=== PATIENT | male | born 1970 | race American Indian/Alaskan Native ===

== ENCOUNTER 2019-11-16 01:21 | Emergency (ER) | payer SELFPAY ==
--- NOTE | 2019-11-16 01:59 | XRay Report ---
CHEST 1 VIEW INDICATION: Chest Pain. COMPARISON: None FINDINGS: Support devices: None. Heart: Within normal limits. Lungs/Pleura: No acute air space or interstitial disease. Additional findings: None. IMPRESSION: 1. No acute findings. Signer Name: Moe Navarro MD Signed: 11/16/2019 1:54 AM Workstation Name: [id number]
[2019-11-16 02:55] LABS: Hematocrit 42.2 % (35.5-45.6); Hemoglobin 14.4 gm/dl (11.8-15.2); Mean Corpuscular HGB Conc 34 % (32-34); Mean Corpuscular Volume 86 fl (84-94); Platelet Count 255 K/mm3 (140-440); Red Cell Distribution Width 14.8 % (13.2-15.2)
[2019-11-16 03:20] LABS: BUN/Creatinine Ratio 11; Blood Urea Nitrogen 16 mg/dL (9-20); Calcium 9.1 mg/dL (8.4-10.2); Hemolysis Index 14
[2019-11-16 03:33] LABS: Total Cells Counted 100
[2019-11-16 03:34] LABS: Platelet Estimate Consistent w Auto; RBC Morphology Normal
--- NOTE | 2019-11-16 08:47 | Emergency Department Report ---
ED Chest Pain HPI - General Chief Complaint: Chest Pain Stated Complaint: CHEST AND JAW PAIN Time Seen by Provider: 11/16/19 08:22 Source: patient Mode of arrival: Ambulatory Limitations: No Limitations - History of Present Illness Initial Comments: 49-year-old [place] male presents to the emergency department with the complaint of a 1 day history of intermittent pain that starts in the right side of his jaw and radiates down to the mid to right chest. At the time of my examination the patient is pain-free and denies taking any medication or treatm ent for his symptoms prior to arrival. He denies any past medical history but does not follow with a primary care physician regularly. He did pass a job physical about 1 year ago. He is a tobacco smoker but denies any illicit drug use. No family history of early cardiac disease or events. He denies any fever, diaphoresis, nausea, vomiting, lower extremity swelling, back pain or shortness of breath. No recent travel or sick contacts at home. Severity scale (0 -10): 0 - Related Data Previous Rx's Medication Instructions Recorded Last Taken Type Amlodipine Besylate [Norvasc] 5 mg PO QDAY #30 tablet 11/16/19 Unknown Rx Allergies Allergy/AdvReac Type Severity Reaction Status Date / Time No Known Allergies Allergy Unverified 11/16/19 01:29 Heart Score - HEART Score History: Slightly suspicious EKG: Non-specific Age: 45-65 Risk factors: 1-2 risk factors Troponin: < normal limit HEART Score: 3 - Critical Actions Critical Actions: 0-3 pts:0.9-1.7%risk of adverse cardiac event.Candidate for discharge ED Review of Systems ROS: Stated complaint: CHEST AND JAW PAIN Other details as noted in HPI Comment: All other systems reviewed and negative Constitutional: denies: chills, fever Eyes: denies: eye pain, vision change ENT: denies: ear pain, throat pain Respiratory: denies: cough, shortness of breath Cardiovascular: chest pain. denies: palpitations, edema Gastrointestinal: denies: abdominal pain, vomiting Genitourinary: denies: dysuria, frequency Musculoskeletal: denies: back pain, arthralgia Skin: denies: rash, lesions Neurological: denies: headache, weakness ED Past Medical Hx - Past Medical History Previous Medical History?: No - Surgical History Past Surgical History?: No - Social History Smoking Status: Current Every Day Smoker - Medications Home Medications: Home Medications Medication Instructions Recorded Confirmed Last Taken Type Amlodipine Besylate [Norvasc] 5 mg PO QDAY #30 tablet 11/16/19 Unknown Rx ED Physical Exam - General Limitations: No Limitations - Other Other exam information: GENERAL: The patient is well-developed well-nourished. HEENT: Normocephalic. Atraumatic. Patient has moist mucous membranes. EYES: Extraocular motions are intact. NECK: Supple. Trachea is midline. CHEST/LUNGS: Clear to auscultation. There is no respiratory distress noted. HEART/CARDIOVASCULAR: Regular. There is no tachycardia. There is no murmur. ABDOMEN: Abdomen is soft, nontender. Patient has normal bowel sounds. There is no abdominal distention. SKIN:Skin is warm and dry. . NEURO: The patient is awake, alert, and oriented. The patient is cooperative. The patient has no focal neurologic deficits. Normal speech. MUSCULOSKELETAL: There is no tenderness or deformity. There is no limitation range of motion. There is no evidence of acute injury. ED Course Vital Signs 11/16/19 11/16/19 11/16/19 01:29 05:07 08:54 Temperature 97.6 F 97.5 F L 97.6 F Pulse Rate 95 H 83 18 L Respiratory 18 18 18 Rate Blood Pressure 164/89 177/102 Blood Pressure 181/99 [Right] O2 Sat by Pulse 98 97 99 Oximetry 11/16/19 10:11 Temperature 97.7 F Pulse Rate 71 Respiratory 18 Rate Blood Pressure Blood Pressure 153/99 [Right] O2 Sat by Pulse 99 Oximetry HAYDE score - Hayde Score Age > 65: (0) No Aspirin use within the Past 7 Days: (0) No 3 or more CAD Risk Factors: (0) No 2 or more Angina events in past 24 hrs: (1) Yes Known CAD with more than 50% Stenosis: (0) No Elevated Cardiac Markers: (0) No ST Deviation Greater than 0.5mm: (0) No HAYDE Score: 1 ED Medical Decision Making - Lab Data Result diagrams: 11/16/19 02:19 11/16/19 02:19 - EKG Data -: EKG Interpreted by Ri EKG shows normal: sinus rhythm, axis (left axis deviation), intervals, QRS complexes (nonspecific intraventricular conduction delay), ST-T waves (nonspecific T waves to the anterior and lateral leads) Rate: normal - EKG Data When compared to previous EKG there are: previous EKG unavailable Interpretation: other (sinus rhythm, rate of 85 bpm, normal intervals, left axis deviation, nonspecific intraventricular conduction delay, nonspecific T waves to the anterior and lateral leads) - Radiology Data Radiology results: image reviewed interpreted by me: Chest x-ray does not show any pleural effusions, pneumonia, pneumothorax, focal consolidation, or any other acute process. - Medical Decision Making This patient presents with some intermittent chest pain and jaw pain since yesterday. At the time of my examination, and since that time, the patient has been asymptomatic. An EKG was done that does not show any morphology consistent with ST elevation ID or significant dysrhythmia. Chest x-ray does not show any pneumonia, pleural effusions, pneumothorax, focal consolidation, or any other acute process. Labs have been unremarkable including negative troponins 3. Vital signs stable throughout his ED course. The patient has a heart score of 3 and a HAYDE score of 1. Given the unremarkable EKG and the negative troponins 3, and fact the patient is asymptomatic, the patient will be discharged home at this time. However his contact information has been sent to [facility] cardiology for close outpatient follow-up. The patient has been instructed to return to the emergency department immediately with any return of his chest pain or with any acute distress. The patient does have some elevated blood pressure here and does not follow regularly with a primary care physician. He has been started on Norvasc. We also discussed smoking cessation and some dietary/lifestyle modifications. He will keep a blood pressure log. - Differential Diagnosis ID, Costochondritis, Pneumonia, GERD Critical Care Time: No Critical care attestation.: If time is entered above; I have spent that time in minutes in the direct care of this critically ill patient, excluding procedure time. ED Disposition Clinical Impression: Intermittent chest pain Hypertension Qualifiers: Hypertension type: essential hypertension Qualified Code(s): I10 - Essential (primary) hypertension Disposition: TO HOME OR SELFCARE Is pt being admited?: No Condition: Stable Instructions: Chest Pain (ED), Hypertension (ED) Additional Instructions: I am given you a referral for some local primary care physicians and clinics. Please follow up and establish care with a primary care physician regarding your blood pressure and for close follow-up. I have sent your contact information to [facility] cardiology for close outpatient follow-up regarding your intermittent chest pains. Someone from their office should be contacting you shortly but I have also given you their contact information. I am starting you on a blood pressure medication called Norvasc/amlodipine for your elevated blood pressure. This medication is taken once per day, usually in the morning. Please try and stay away from foods that are high in salt, caffeinated products, and please try to quit smoking. Keep a blood pressure log. Return to the emergency department immediately with any return of your chest pain, worsening of your symptoms, or with any acute distress. Prescriptions: Amlodipine Besylate [Norvasc] 5 mg PO QDAY #30 tablet Referrals: HUSSAIN LANDON MD [Staff Physician] - 2-3 Days MARYA FLOREZ MD [Staff Physician] - 2-3 Days [facility] [Outside] - 2-3 Days [facility] [Provider Group] - 2-3 Days Time of Disposition: 08:52
[2019-11-16] MEDS ORDERED: ASPIRIN 81 MG TAB CHEW PO ONE (08:52)
[2019-11-16 10:13] VITALS: BP 153/99
== END 2019-11-16 10:12 | disposition home or self-care (01) ==
LOC: ED 01:21
DX: F17.200 Nicotine dependence, unspecified, uncomplicated (principal); R07.89 Other chest pain; I10 Essential (primary) hypertension
CPT/HCPCS: 36415; 71045; 80048; 84484; 85007; 85025; 93005; 93010

== ENCOUNTER 2020-01-18 19:01 | Emergency (ER) | payer SELFPAY ==
[2020-01-18] MEDS ORDERED: ALTEPLASE 100 MG INJ KIT ONE (19:23)
--- NOTE | 2020-01-18 19:27 | Event Note ---
Date: 01/18/20 Medical screening note: 49-year-old gentleman presenting with EMS, as a possible code stroke. Last known well time was approximately 1 hour prior to arrival. Patient is awake, with right-sided neglect, moderately hypertensive, currently being evaluated by stroke neurology, Dr. Beebe, who is currently recommending TPA, and emergency CT angiogram head and neck. He is also going to obtain consent for TPA from patient's significant other. - Assessment Assessment Interval: Baseline - Level of Consciousness 1a. Level of Consciousness: resp stimuli/obtunded - LOC Questions 1b. LOC Questions: aphasic - LOC Command 1c. LOC Commands: performs no tasks correctly - Best Gaze 2. Best Gaze: partial gaze palsy - Visual 3. Visual: no visual loss (Unable to assess) - Facial Palsy 4. Facial Palsy: normal symmetrical movement (Unable to assess) - Motor Arm 5a. Motor Arm Left: some gravity effort 5b. Motor Arm Right: no movement - Motor Leg 6a. Motor Leg Left: some gravity effort 6b. Motor Leg Right: no movement - Limb Ataxia 7. Limb Ataxia: amputation (Unable to assess) - Sensory 8. Sensory: mild/moderate sensory loss (Sensation intact to pinch in the left upper, left lower extremity. Right upper, right lower extremity does not respond to touch.) - Best Language 9. Best Language: mute/global aphasia - Dysarthria 10. Dysarthria: mute/anarrthric - Extinction and Inattention 11. Extinction/Inattention: profound inattention - Scoring Total Score: 27 Stroke Severity: Severe Stroke
[2020-01-18] MEDS ORDERED: ALTEPLASE 100 MG INJ KIT IV ONE ×2 (19:28)
[2020-01-18] MEDS ORDERED: SODIUM CHLORIDE 0.9% 50 ML IVPB IV ONE (19:28)
--- NOTE | 2020-01-18 19:36 | Cat Scan Report ---
CT head/brain wo con INDICATION / CLINICAL INFORMATION: 49 years Male; neuro deficits <6hrs or sx present upon awakening CODE STROKE [phone]. TECHNIQUE: Routine CT head without contrast. All CT scans at this location are performed using CT dos e reduction for ALARA by means of automated exposure control. COMPARISON: None. FINDINGS: BRAIN / INTRACRANIAL CONTENTS: The motion degrades image quality at. However, the brain appears to de monstrate appropriate attenuation. The ventricular system is within normal limits in size and configu ration. There is no clear CT evidence of acute intracranial hemorrhage or significant mass effect. ORBITS: No significant abnormality of visualized orbits. SINUSES / MASTOIDS: No significant abnormality the visualized paranasal sinuses or mastoid air cells. CRANIOCERVICAL JUNCTION: No significant abnormality. ADDITIONAL FINDINGS: None. IMPRESSION: 1. There is no CT evidence of acute intracranial process. The study was specified as code stroke and called emergently to the ER at 6:28 PM Central standard ti nm. Signer Name: Wagner Olivo MD Signed: 01/18/2020 7:32 PM Workstation Name: [id number]
--- NOTE | 2020-01-18 19:41 | Emergency Department Report ---
ED Neuro Deficit HPI - General Stated Complaint: POSS CVA - History of Present Illness Initial Comments: [facility] [facility] Date of Service: 01/18/2020 19:04:09 Impression: Rule Out Acute Ischemic Stroke Large Vessel Infarct Left Hemispheric Infarct Comments/Sign-Out: acute right hemiparesis, L gaze deviation, and global aphasia - concerning for L MCA stroke. The risks/benefits/alternatives of IV tpa, including a 6 percent risk of brain bleed and 3 percent risk of , was reviewed with the patient's daughter and girlfriend, and they consented to IV tpa. CTA head/neck pending. Mechanism of Stroke: Possible Thromboembolic Possible Cardioembolic Metrics: Last Known Well: 01/18/2020 17:45:00 [employer] Notification Time: 01/18/2020 19:03:41 Arrival Time: 01/18/2020 19:01:00 Stamp Time: 01/18/2020 19:04:09 Time First Login Attempt: 01/18/2020 19:11:39 Video Start Time: 01/18/2020 19:11:39 Symptoms: left gaze; unresponsiveness. NIHSS Start Assessment Time: 01/18/2020 19:16:20 tPA Verbal Order Time: 01/18/2020 19:18:33 Patient is a candidate for tPA. tPA CPOE Order Time: 01/18/2020 19:30:37 Needle Time: 01/18/2020 19:38:03 Weight Noted by Staff: 221 lbs Video End Time: 01/18/2020 19:39:18 CT head was reviewed and results were: neg per radiology Clinical Presentation is Suggestive of Large Vessel Occlusive Disease, Recommendations are as Follows CTA Head and Neck. ED Physician notified of diagnostic impression and management plan on 01/18/2020 19:30:40 Verbal Consent to tPA: I have explained to the Patient the nature of the patients condition, the use of tPA fibrinolytic agent, and the benefits to be reasonably expected compared with alternative approaches. I have discussed the likelihood of major risks or complications of this procedure including (if applicable) but not limited to loss of limb function, brain damage, paralysis, hemorrhage, infection, complications from transfusion of blood components, drug reactions, blood clots and loss of life. I have also indicated that with any procedure there is always the possibility of an unexpected complication. All questions were answered and Patient express understanding of the treatment plan and consent to the treatment. Our recommendations are outlined below. Recommendations: IV tPA recommended. tPA bolus given Without Complication. IV tPA Total Dose 90.0 mg IV tPA Bolus Dose 9.0 mg IV tPA Infusion Dose - 81.0 mg Routine post tPA monitoring including neuro checks and blood pressure control during/after treatment Monitor blood pressure Check blood pressure and NIHSS every 15 min for 2 h, then every 30 min for 6 h, and finally every hour for 16 h. Manage Blood Pressure per post tPA protocol. Admission to ICU CT brain 24 hours post tPA NPO until swallowing screen performed and passed No antiplatelet agents or anticoagulants (including heparin for DVT prophylaxis) in first 24 hours No Jain catheter, nasogastric tube, arterial catheter or central venous catheter for 24 hr, unless absolutely necessary Telemetry Bedside swallow evaluation HOB less than 30 degrees Euglycemia Avoid hyperthermia, PRN acetaminophen DVT prophylaxis Inpatient Neurology Consultation Stroke evaluation as per inpatient neurology recommendations Additional Recommendations: MRI Head with and Without Contrast Unless There Are Contraindications Discussed with ED physician History of Present Illness: Patient is a 49 year old Male. Patient was brought by EMS for symptoms of left gaze; unresponsiveness. 49 yo man LSN at approx 1745 was found to be unresponsive by his family. He has a L gaze palsy. He cannot speak at all. No LOC/convulsion. He was witnessed to normal by his girlfriend. CT head was reviewed. Last seen normal was within 4.5 hours. There is no history of hemorrhagic complications or intracranial hemorrhage. There is no history of Recent Anticoagulants. There is no history of recent major surgery. There is no history of recent stroke. Examination: BP(155/86), Blood Glucose(151) 1A: Level of Consciousness - Arouses to minor stimulation + 1 1B: Ask Month and Age - Aphasic + 2 1C: Blink Eyes & Squeeze Hands - Performs 0 Tasks + 2 2: Test Horizontal Extraocular Movements - Forced Gaze Palsy: Cannot Be Overcome + 2 3: Test Visual Santos - No Visual Loss + 0 4: Test Facial Palsy (Use Grimace if Obtunded) - Minor paralysis (flat nasolabial fold, smile asymmetry) + 1 5A: Test Left Arm Motor Drift - No Drift for 10 Seconds + 0 5B: Test Right Arm Motor Drift - No Drift for 10 Seconds + 0 6A: Test Left Leg Motor Drift - No Drift for 5 Seconds + 0 6B: Test Right Leg Motor Drift - No Drift for 5 Seconds + 0 7: Test Limb Ataxia (FNF/Heel-Elizabeth) - No Ataxia + 0 8: Test Sensation - Normal; No sensory loss + 0 9: Test Language/Aphasia - Normal; No aphasia + 0 10: Test Dysarthria - Normal + 0 11: Test Extinction/Inattention - No abnormality + 0 NIHSS Score: 8 Patient was informed the Neurology Consult would happen via TeleHealth consult by way of interactive audio and video telecommunications and consented to receiving care in this manner. Due to the immediate potential for life-threatening deterioration due to underlying acute neurologic illness, I spent 35 minutes providing critical care. This time includes time for face to face visit via telemedicine, review of medical records, imaging studies and discussion of findings with providers, the patient and/or family. Dr Bharat Beebe [employer] Case [id number] - Related Data Home Medications: Previous Rx's Medication Instructions Recorded Last Taken Type Amlodipine Besylate [Norvasc] 5 mg PO QDAY #30 tablet 11/16/19 Unknown Rx Allergies/Adverse Reactions: Allergies Allergy/AdvReac Type Severity Reaction Status Date / Time No Known Allergies Allergy Unverified 11/16/19 01:29 ED Review of Systems ROS: Stated complaint: POSS CVA Other details as noted in HPI ED Past Medical Hx - Social History Smoking Status: Current Every Day Smoker - Medications Home Medications: Home Medications Medication Instructions Recorded Confirmed Last Taken Type Amlodipine Besylate [Norvasc] 5 mg PO QDAY #30 tablet 11/16/19 Unknown Rx ED Neuro Physical Exam - General Suspected Stroke: Yes - NIHSS Assessment Interval: Baseline 1a. Level of Consciousness: arousable/minor stimuli 1b. LOC Questions: aphasic 1c. LOC Commands: performs no tasks correctly 2. Best Gaze: forced deviation 3. Visual: no visual loss 4. Facial Palsy: minor paralysis 5b. Motor Arm Right: no movement 5a. Motor Arm Left: no drift 6a. Motor Leg Left: no movement 6b. Motor Leg Right: no drift 7. Limb Ataxia: absent 8. Sensory: normal 9. Best Language: mute/global aphasia 10. Dysarthria: severe dysarthria 11. Extinction/Inattention: no abnormality Total Score: 21 Stroke Severity: Severe Stroke Critical care attestation.: If time is entered above; I have spent that time in minutes in the direct care of this critically ill patient, excluding procedure time. ED Disposition Clinical Impression: Stroke due to embolism of left middle cerebral artery Disposition: DC-09 OP ADMIT IP TO THIS HOSP Is pt being admited?: Yes Condition: Stable Referrals: PRIMARY CARE, [Primary Care Provider] - 3-5 Days
[2020-01-18 19:54] LABS: Hematocrit 44.9 % (35.5-45.6); Hemoglobin 14.6 gm/dl (11.8-15.2); Mean Corpuscular HGB Conc 33 % (32-34); Mean Corpuscular Volume 89 fl (84-94); Platelet Count 247 K/mm3 (140-440); Red Blood Count 5.03 M/mm3 (3.65-5.03); Red Cell Distribution Width 15.1 % (13.2-15.2)
[2020-01-18] MEDS ORDERED: niCARdipine 50 MG in SODIUM CHLORIDE 0.9% 250ML 230 ML IV SCH (20:00)
[2020-01-18 20:10] LABS: INR 5.64 (0.87-1.13); Partial Thromboplastin Time 176.4 Sec. (24.2-36.6)
[2020-01-18 20:23] LABS: BUN/Creatinine Ratio 12; Blood Urea Nitrogen 17 mg/dL (9-20); Calcium 9.4 mg/dL (8.4-10.2); Hemolysis Index 19
[2020-01-18] MEDS ORDERED: SODIUM CHLORIDE 0.9% 1000 ML 2,000 ML ONE (20:24)
--- NOTE | 2020-01-18 20:26 | Emergency Department Report ---
- General Stated complaint: POSS CVA Time Seen by Provider: 01/18/20 20:01 Source: EMS, RN notes reviewed Mode of arrival: Stretcher Limitations: Altered Mental Status, Physical Limitation - History of Present Illness Initial comments: Patient is a 49-year-old male that presents emergency room with right-sided weakness and altered mental status. Patient's last known well time 1 hour prior to arrival. Patient brought in by EMS. Patient had a code stroke immediately initiated upon arrival. Patient is already had a CT and a CTA. Patient is already received TPA. MD Complaint: focal weakness -: Sudden Location: RUE, RLE, R face Severity: severe Consistency: constant - Related Data Previous Rx's Medication Instructions Recorded Last Taken Type Amlodipine Besylate [Norvasc] 5 mg PO QDAY #30 tablet 11/16/19 Unknown Rx Allergies Allergy/AdvReac Type Severity Reaction Status Date / Time No Known Allergies Allergy Unverified 11/16/19 01:29 ED Review of Systems ROS: Stated complaint: POSS CVA Other details as noted in HPI Comment: Unobtainable due to pts medical conditions ED Past Medical Hx - Past Medical History Previous Medical History?: Yes Hx Hypertension: Yes - Surgical History Past Surgical History?: No - Family History Family history: no significant - Social History Smoking Status: Current Every Day Smoker - Medications Home Medications: Home Medications Medication Instructions Recorded Confirmed Last Taken Type Amlodipine Besylate [Norvasc] 5 mg PO QDAY #30 tablet 11/16/19 Unknown Rx ED Physical Exam - General Limitations: Altered Mental Status, Physical Limitation General appearance: in no apparent distress, obtunded - Head Head exam: Present: atraumatic, normocephalic - Eye Eye exam: Present: normal appearance, PERRL Pupils: Present: normal accommodation - ENT ENT exam: Present: mucous membranes dry - Neck Neck exam: Present: normal inspection - Respiratory Respiratory exam: Present: decreased breath sounds. Absent: respiratory distress, wheezes, rales - Cardiovascular Cardiovascular Exam: Present: regular rate, normal rhythm. Absent: systolic murmur, diastolic murmur, rubs, gallop - GI/Abdominal GI/Abdominal exam: Present: soft, normal bowel sounds - Rectal Rectal exam: Present: deferred - Extremities Exam Extremities exam: Present: normal inspection - Back Exam Back exam: Present: normal inspection - Neurological Exam Neurological exam: Present: altered - Expanded Neurological Exam Expanded Best Eye Response ([place]rey): (2) open to pain Best Motor Response ([place]): (4) withdraws to pain Best Verbal Response ([place]): (1) no verbal response Jeffrey Total: 7 - Skin Skin exam: Present: warm, dry, intact, normal color. Absent: rash - Assessment Assessment Interval: Baseline - Level of Consciousness 1a. Level of Consciousness: coma/unresponsive - LOC Questions 1b. LOC Questions: aphasic - LOC Command 1c. LOC Commands: performs no tasks correctly - Best Gaze 2. Best Gaze: forced deviation - Visual 3. Visual: no visual loss - Facial Palsy 4. Facial Palsy: unilateral complete paralysis - Motor Arm 5a. Motor Arm Left: no drift 5b. Motor Arm Right: no movement - Motor Leg 6a. Motor Leg Left: no drift 6b. Motor Leg Right: no movement - Limb Ataxia 7. Limb Ataxia: absent - Sensory 8. Sensory: severe/total sensory loss - Best Language 9. Best Language: mute/global aphasia - Dysarthria 10. Dysarthria: mute/anarrthric - Extinction and Inattention 11. Extinction/Inattention: no abnormality - Scoring Total Score: 27 Stroke Severity: Severe Stroke ED Course Vital Signs 01/18/20 01/18/20 01/18/20 19:16 19:20 19:26 Temperature Pulse Rate 98 H 106 H 114 H Respiratory 16 16 31 H Rate Blood Pressure 188/102 179/101 Blood Pressure 188/102 179/101 [Left] O2 Sat by Pulse 96 93 95 Oximetry 01/18/20 01/18/20 01/18/20 19:30 19:31 19:36 Temperature Pulse Rate 123 H 116 H 99 H Respiratory 23 28 H 20 Rate Blood Pressure 179/101 184/95 Blood Pressure 184/95 155/86 [Left] O2 Sat by Pulse 94 96 95 Oximetry 01/18/20 01/18/20 01/18/20 19:40 20:04 20:06 Temperature Pulse Rate 99 H 106 H 104 H Respiratory 15 22 21 Rate Blood Pressure 155/86 154/94 154/94 Blood Pressure [Left] O2 Sat by Pulse 99 Oximetry 01/18/20 01/18/20 01/18/20 20:10 20:16 20:20 Temperature Pulse Rate 105 H 98 H 102 H Respiratory 21 18 17 Rate Blood Pressure 157/88 156/90 153/81 Blood Pressure [Left] O2 Sat by Pulse 99 96 96 Oximetry 01/18/20 01/18/20 01/18/20 20:26 20:30 20:36 Temperature Pulse Rate 125 H 110 H 113 H Respiratory 28 H 21 12 Rate Blood Pressure 162/97 262/150 200/111 Blood Pressure [Left] O2 Sat by Pulse 96 100 97 Oximetry 01/18/20 01/18/20 01/18/20 20:40 20:47 20:50 Temperature Pulse Rate 110 H 109 H 111 H Respiratory 17 15 18 Rate Blood Pressure 245/120 189/118 Blood Pressure [Left] O2 Sat by Pulse 96 95 96 Oximetry 01/18/20 01/18/20 01/18/20 20:51 20:56 21:00 Temperature Pulse Rate 102 H 114 H 113 H Respiratory 21 19 21 Rate Blood Pressure 189/118 168/95 Blood Pressure 154/94 [Left] O2 Sat by Pulse 96 96 96 Oximetry 01/18/20 01/18/20 01/18/20 21:06 21:10 21:15 Temperature Pulse Rate 119 H 113 H 129 H Respiratory 17 20 17 Rate Blood Pressure 168/95 168/95 172/99 Blood Pressure [Left] O2 Sat by Pulse 96 97 95 Oximetry 01/18/20 01/18/20 01/18/20 21:20 21:36 21:40 Temperature Pulse Rate 113 H 111 H Respiratory 20 20 Rate Blood Pressure 172/99 168/95 134/76 Blood Pressure [Left] O2 Sat by Pulse 95 97 96 Oximetry 01/18/20 01/18/20 01/18/20 21:42 21:45 21:50 Temperature Pulse Rate 109 H 107 H 106 H Respiratory 20 20 Rate Blood Pressure 124/74 124/74 Blood Pressure [Left] O2 Sat by Pulse 95 98 100 Oximetry 01/18/20 01/18/20 01/18/20 21:56 21:57 22:00 Temperature 98.6 F Pulse Rate 106 H 115 H Respiratory 20 20 Rate Blood Pressure 124/74 147/80 Blood Pressure [Left] O2 Sat by Pulse 97 95 Oximetry - Reevaluation(s) Reevaluation #1: Patient done. Patient's current GCS is less than 8. In order to protect the patient's airway while he is getting TPA I will intubate the patient. 01/18/20 20:17 Reevaluation #2: Patient intubated without difficulty. See procedure note. 01/18/20 20:26 Reevaluation #3: Patient is having shaking-like movements. Patient's fentanyl drip will be stopped and placed on a Ativan drip. Patient will be given 2 mg of Ativan now. Patient also be given Keppra. Patient's blood pressure is better 01/18/20 20:58 Reevaluation #4: We will order another head CT prior to transfer to verify no bleed since the patient has had possible seizures 01/18/20 21:30 Reevaluation #5: EMS at bedside and report given to them for transfer. Patient has received Keppra. Patient switched from Ativan to fentanyl. 01/18/20 21:57 - Consultations Consultation #1: Neurology states The patient has complete occlusion of the internal carotid. Neurology going to contact [facility] interventionalists. 01/18/20 20:51 I discussed case again with neurology. 01/18/20 21:11 Consultation #2: I discussed case with Dr. Tang and Dr. Centeno at [facility]. They have accepted the patient to be transferred. 01/18/20 21:21 Dr. Tang has asked to hold the transfer until he can speak to an endovascular attending 01/18/20 21:30 Dr. Tang has accepted the patient to be transferred to [facility] but wants the Ativan stopped after the patient received Keppra and placed back on fentanyl drip 01/18/20 21:47 - Intubation Time Out Performed: Yes Sedative: Etomidate Paralytic: Rocuronium Laryngoscope: fiberoptic video scope Size: 3 Assist Device Used: fiberoptic device ET Tube Size: 7.5 Tube Secured Depth (cm): 24 Tube Secured Location: teeth Tube Placement Confirmation: visualized tube passing t, equal breath sounds bilat, no breath sounds over epi, confirmation by capnometr Patient Tolerated Procedure: well, no complications Intubation Complications: none ED Medical Decision Making - Lab Data Result diagrams: 01/18/20 19:38 01/18/20 19:38 - EKG Data -: EKG Interpreted by Me EKG shows normal: sinus rhythm, axis, intervals, QRS complexes, ST-T waves Rate: normal - Radiology Data Radiology results: report reviewed, image reviewed interpreted by me: CHEST 1 VIEW 8:27 PM INDICATION / CLINICAL INFORMATION: ETT placement. COMPARISON: 11/16/19. FINDINGS: SUPPORT DEVICES: There is a new endotracheal tube with the tip 3.8 cm above the alessandra. There is a nasogastric tube coursing into the distal stomach with the tip not seen. HEART / MEDIASTINUM: The heart size and pulmonary vasculature are normal. LUNGS / PLEURA: There is probable mild parenchymal disease in the left r etrocardiac region. The right lung is clear. No pleural effusion is seen. No pneumothorax. ADDITIONAL FINDINGS: No significant additional findings. IMPRESSION: 1. Endotracheal tube in good position. 2. Mild left retrocardiac atelectasis versus developing pneumonia. CT head/brain wo con INDICATION / CLINICAL INFORMATION: 49 years Male; neuro deficits <6hrs or sx present upon awakening CODE STROKE [phone]. TECHNIQUE: Routine CT head without contrast. All CT scans at this location are performed using CT dose reduction for [employer] by means of automated exposure control. COMPARISON: None. FINDINGS: BRAIN / INTRACRANIAL CONTENTS: The motion degrades image quality at. However, the brain appears to demonstrate appropriate attenuation. The ventricular system is within normal limits in size and configuration. There is no clear CT evidence of acute intracranial hemorrhage or significant mass effect. ORBITS: No significant abnormality of visualized orbits. SINUSES / MASTOIDS: No significant abnormality the visualized paranasal sinuses or mastoid air cells. CRANIOCERVICAL JUNCTION: No significant abnormality. ADDITIONAL FINDINGS: None. IMPRESSION: 1. There is no CT evidence of acute intracranial process. CTA head with and without IV contrast. CLINICAL HISTORY: Cerebrovascular accident. Technique: Multiple contiguous postcontrast CT images of the head were obtained at 0.63 mm intervals.3 plane MIP reconstructions were obtained. Precontrast localizing images were also performed. CT scans at this location are performed using the CT dose reduction for [employer] by means of automated exposure control. FINDINGS: There is occlusion of the visualized left ICA to the ophthalmic segment. The more distal component appears to be opacified via retrograde flow. There is small caliber of the left ABBY which appears reflect developmental hypoplasia. The contrast opacification within the proximal left MCA appears to be via the kidney can arteries. However, there is relative decreased opacification of the more distal MCA branches indicative of reduced flow. There is developing edema involving the lateral left frontal lobe with effacement of the sulci from the earlier CT. 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 There is no significant focal narrowing of the vertebral basilar system. The posterior cerebral arteries appear unremarkable. There is no clear CTA evidence of intracranial aneurysm. 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 There is suggestion of filling defect at the junction of the transverse and sigmoid sinuses which may reflect arachnoid granulation. IMPRESSION: There is occlusion of the visualized left ICA to the ophthalmic segment as detai led above. There is collateral flow within the proximal left MCA via the communicating arteries. However, there is decreased opacification of the more distal branches compatible with reduced flow. Furthermore, there is developing edema within the left frontal cortex compatible with evolving ischemic changes. CTA neck with and without contrast CLINICAL HISTORY: Cerebrovascular accident. Technique: Multiple contiguous postcontrast axial CT images of the neck were obtained at 0.63 mm intervals. 3 plane MIP reconstructions were produced. Precontrast localizing images were also performed. All CT scans at this location are performed using the CT dose reduction for [employer] by means of automated exposure control. FINDINGS: There is occlusion of the left ICA approximately 2 cm distal to the bifurcation. There is no reconstitution of the cervical left ICA. The left common carotid artery is unremarkable. There is no significant stenosis involving the right carotid arteries by NASCET criteria. The vertebral arteries also demonstrate appropriate caliber without focal narrowing. The arch vessels are obscured by the degree of motion though there is no evidence of significant stenosis. IMPRESSION: There is occlusion of the proximal left ICA approximately 2 cm distal to the bifurcation. CT HEAD/BRAIN WO CON INDICATION / CLINICAL INFORMATION: CVA. TECHNIQUE: All CT scans at this location are performed using CT dose reduction for [employer] by means of automated exposure control. COMPARISON: CT head without contrast today at 7:[address] angiography of the head with contrast today at 8:00 PM. FINDINGS: The ventricular system is normal in size and configuration. Subtle developing edema in the left frontoparietal cortex superiorly is similar to the CT angiogram of the head performed at 8:00 PM. There is subtle effacement of the sulci in this region. No other focal abnormality is seen. There is no evidence of intracranial hemor rhage or other change. - Medical Decision Making Patient is a 49-year-old male that presents emergency room with strokelike symptoms of right-sided weakness and right-sided facial droop. Patient has a moderately elevated NIH. Patient had a code stroke around immediately upon arrival. Patient had a CT and a CTA done prior to my initial evaluation. Patient are also already received TPA prior to my initial evaluation. Patient's initial exam showed a decreased GCS of less than 8. Patient was immediately intubated to protect the airway since the patient is at high risk for airway compromise due to his decreased level of consciousness. Patient intubated with out difficulty. Patient was intubated patient's blood pressure increased. Patient was given a IV push of labetalol and then placed on a nicardipine drip which controlled his blood pressure. Patient also then found to have a shaking and seizure-like activity. Patient was given Ativan push. Patient was then switched from fentanyl to Ativan. After the patient's activity had stopped the patient was given a Keppra bolus and then switch back to fentanyl per the neurosurgery request at [facility]. I discussed the case multiple times with neurology and neurosurgery at [facility]. Patient was accepted for transfer to the neuro ICU for possible endovascular procedure at [facility]. Patient's labs are essentially unremarkable except for elevated coags. Occult care time documented due to multiple re-evaluations and the severity of the clinical scenario in case. - Differential Diagnosis CVA, ICH, occlusion, weakness. AMS. Decreased responsiveness Critical Care Time: Yes Critical care time in (mins) excluding proc time.: 80 Critical care attestation.: If time is entered above; I have spent that time in minutes in the direct care of this critically ill patient, excluding procedure time. Critical Care Time: 80 minutes ED Disposition Clinical Impression: Stroke due to embolism of left middle cerebral artery, Decreased responsi veness, Malignant hypertension, Seizure Altered mental state Qualifiers: Altered mental status type: unspecified Qualified Code(s): R41.82 - Altered mental status, unspecified Disposition: DC-09 OP ADMIT IP TO THIS HOSP Is pt being admited?: No Does the pt Need Aspirin: No Condition: Critical Time of Disposition: 21:50
[2020-01-18] MEDS ORDERED: fentaNYL DRIP Premix 2,000 MCG/100 ML BAG IV ONE (20:27)
[2020-01-18] MEDS ORDERED: MINERAL OIL/PETROLATUM, WHITE OPHTH OINT 3.5 GM OU PRN (20:30)
[2020-01-18] MEDS ORDERED: LIP THERAPY VASELINE TP PRN (20:30)
[2020-01-18] MEDS ORDERED: fentaNYL 100 MCG/2 ML INJ IV PRN (20:32)
--- NOTE | 2020-01-18 20:50 | Cat Scan Report ---
CTA head with and without IV contrast. CLINICAL HISTORY: Cerebrovascular accident. Technique: Multiple contiguous postcontrast CT images of the head were obtained at 0.63 mm intervals. 3 plane MIP reconstructions were obtained. Precontrast localizing images were also performed. CT scan s at this location are performed using the CT dose reduction for [employer] by means of automated exposure control. FINDINGS: There is occlusion of the visualized left ICA to the ophthalmic segment. The more distal co mponent appears to be opacified via retrograde flow. There is small caliber of the left ABBY which caity ears reflect developmental hypoplasia. The contrast opacification within the proximal left MCA appear s to be via the kidney can arteries. However, there is relative decreased opacification of the more d istal MCA branches indicative of reduced flow. There is developing edema involving the lateral left f rontal lobe with effacement of the sulci from the earlier CT. 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 There is no significant focal narrowing of the vertebral basilar system. The posterior cerebral arteries appea r unremarkable. There is no clear CTA evidence of intracranial aneurysm. There is irregularity with small caliber of the left transverse and sigmoid sinuses which would appea r to reflect developmental hypoplasia. There is suggestion of filling defect at the junction of the t ransverse and sigmoid sinuses which may reflect arachnoid granulation. IMPRESSION: There is occlusion of the visualized left ICA to the ophthalmic segment as detailed above. There is collateral flow within the proximal left MCA via the communicating arteries. However, there is decreased opacification of the more distal branches compatible with reduced flow. Furthermore, the re is developing edema within the left frontal cortex compatible with evolving ischemic changes. Signer Name: Wagner Olivo MD Signed: 01/18/2020 8:45 PM Workstation Name: [id number]
--- NOTE | 2020-01-18 20:55 | Cat Scan Report ---
CTA neck with and without contrast CLINICAL HISTORY: Cerebrovascular accident. Technique: Multiple contiguous postcontrast axial CT images of the neck were obtained at 0.63 mm inte rvals. 3 plane MIP reconstructions were produced. Precontrast localizing images were also performed. All CT scans at this location are performed using the CT dose reduction for [employer] by means of automat ed exposure control. FINDINGS: There is occlusion of the left ICA approximately 2 cm distal to the bifurcation. There is n o reconstitution of the cervical left ICA. The left common carotid artery is unremarkable. There is no significant stenosis involving the right carotid arteries by NASCET criteria. The vertebr al arteries also demonstrate appropriate caliber without focal narrowing. The arch vessels are obscur ed by the degree of motion though there is no evidence of significant stenosis. IMPRESSION: There is occlusion of the proximal left ICA approximately 2 cm distal to the bifurcation. Signer Name: Wagner Olivo MD Signed: 01/18/2020 8:51 PM Workstation Name: [id number]
[2020-01-18] MEDS ORDERED: LORazepam 2 MG/ML VIAL IV PRN (20:58)
[2020-01-18] MEDS ORDERED: LORazepam 2 MG/ML VIAL ONE (20:59)
[2020-01-18] MEDS ORDERED: fentaNYL DRIP Premix 2,000 MCG/100 ML BAG IV SCH (21:00)
[2020-01-18] MEDS ORDERED: LORazepam 100 MG in SODIUM CHLORIDE 0.9% 50 ML, EMPTY BAG 0 ML IV SCH (21:00)
--- NOTE | 2020-01-18 21:10 | XRay Report ---
CHEST 1 VIEW 8:27 PM INDICATION / CLINICAL INFORMATION: ETT placement. COMPARISON: 11/16/19. FINDINGS: SUPPORT DEVICES: There is a new endotracheal tube with the tip 3.8 cm above the alessandra. There is a na sogastric tube coursing into the distal stomach with the tip not seen. HEART / MEDIASTINUM: The heart size and pulmonary vasculature are normal. LUNGS / PLEURA: There is probable mild parenchymal disease in the left retrocardiac region. The right lung is clear. No pleural effusion is seen. No pneumothorax. ADDITIONAL FINDINGS: No significant additional findings. IMPRESSION: 1. Endotracheal tube in good position. 2. Mild left retrocardiac atelectasis versus developing pneumonia. Signer Name: Mick Centeno MD Signed: 01/18/2020 9:06 PM Workstation Name: [id number]
[2020-01-18] MEDS ORDERED: levETIRAcetam 1000 MG/NS 0.75% 1,000 MG/100 ML BAG IV ONE (21:19)
[2020-01-18] MEDS ORDERED: SODIUM CHLORIDE 0.9% 1000 ML 1,000 ML IV SCH (21:30)
[2020-01-18] MEDS ORDERED: ROCURONIUM 50 MG/5 ML INJ IV ONE (22:00)
[2020-01-18] MEDS ORDERED: ETOMIDATE 20 MG/10 ML INJ IV ONE (22:00)
[2020-01-18 22:01] VITALS: BP 147/80
--- NOTE | 2020-01-18 22:22 | Cat Scan Report ---
CT HEAD/BRAIN WO CON INDICATION / CLINICAL INFORMATION: CVA. TECHNIQUE: All CT scans at this location are performed using CT dose reduction for [employer] by means of automated e xposure control. COMPARISON: CT head without contrast today at 7:[address] angiography of the head with contrast today at 8:00 PM. FINDINGS: The ventricular system is normal in size and configuration. Subtle developing edema in the left front oparietal cortex superiorly is similar to the CT angiogram of the head performed at 8:00 PM. There is subtle effacement of the sulci in this region. No other focal abnormality is seen. There is no evidence of intracranial hemorrhage or other change. Signer Name: Mick Centeno MD Signed: 01/18/2020 10:17 PM Workstation Name: [id number]
[2020-01-19] MEDS ORDERED: SODIUM CHLORIDE 0.9% 1000 ML 2,000 ML IV ONE (07:00)
== END 2020-01-18 22:21 | disposition admitted as inpatient to this hospital (09) ==
LOC: ED 19:01
DX: I63.412 Cerebral infarction due to embolism of left middle cerebral artery (principal); R56.9 Unspecified convulsions; R46.4 Slowness and poor responsiveness; R41.82 Altered mental status, unspecified; I10 Essential (primary) hypertension; Z79.899 Other long term (current) drug therapy
CPT/HCPCS: 31500; 36415; 70450; 70496; 70498; 71045; 80048; 82550; 82962; 83735; 84484; 85025; 85610; 85670; 85730; 93005; 93010; 96365; 96366; 96368; 96375; 96376; 99291; J1953; J2060; J2997; J3010; J7030; J7050; Q9967; 94002